=== PATIENT | male | born 1990 | race Caucasian/White ===

== ENCOUNTER 2016-07-01 08:21 | Emergency (ER) | payer OTHER ==
[~2016-07-01] VITALS: Ht 170.2 cm; Wt 63.5 kg
[2016-07-01 08:21] VITALS: BP 137/97
[2016-07-01] MEDS ORDERED: IBUPROFEN 600600 M1 PO (09:03)
== END 2016-07-01 09:29 | disposition home or self-care (01) ==
LOC: ER 08:21
DX: J03.80 Acute tonsillitis due to other specified organisms (principal); Z90.5 Acquired absence of kidney; F17.210 Nicotine dependence, cigarettes, uncomplicated